=== PATIENT | female | born 1990 | race Caucasian/White ===

== ENCOUNTER 2017-04-11 17:17 | Emergency (ER) | payer BC ==
[2017-04-11 17:31] VITALS: RESP 18
--- NOTE | 2017-04-11 17:58 | ED ---
General Adult HPI - General Chief complaint: Upper Respiratory Infection Stated complaint: congestion Time Seen by Provider: 04/11/17 17:43 Source: patient, RN notes reviewed Mode of arrival: ambulatory Limitations: no limitations - History of Present Illness Initial comments: Patient 26-year-old female who presents emergency room today with a chief complaint of upper respiratory symptoms over the last week. She does admit to cough congestion. Does admit to positive sputum production as been yellow in color. Patient admits to feeling feverish and having chills. Had a sore throat. Does admit to rhinorrhea. Does admit to some pressure ears bilaterally. Patient denies any other complaints. Patient denies any recent shortness of breath, chest pain, back pain, abdominal pain, nausea or vomiting, numbness or tingling, dysuria or hematuria, constipation or diarrhea, headaches or visual changes, or any other complaints. - Related Data Home Medications Medication Instructions Recorded Confirmed Ibuprofen [Motrin] 400 mg PO TID PRN 04/11/17 04/11/17 Previous Rx's Medication Instructions Recorded Azithromycin [Zithromax Z-pack] 0 mg PO DIRECTED #6 tab 04/11/17 Allergies Allergy/AdvReac Type Severity Reaction Status Date / Time bupropion HCl Allergy Oakes-Clinton Verified 04/11/17 18:10 [From Wellbutrin] Syndrome lamotrigine [From Lamictal] Allergy Oakes-[place] Verified 04/11/17 18:10 Syndrome Review of Systems ROS Statement: Those systems with pertinent positive or pertinent negative responses have been documented in the HPI. ROS Other: All systems not noted in ROS Statement are negative. Past Medical History Past Medical History: No Reported History History of Any Multi-Drug Resistant Organisms: None Reported Past Surgical History: Section Past Anesthesia/Blood Transfusion Reactions: No Reported Reaction Past Psychological History: Anxiety, Bipolar, Depression Smoking Status: Current every day smoker Past Alcohol Use History: None Reported Past Drug Use History: None Reported General Exam - General Exam Comments Initial Comments: General: The patient is awake and alert, in no distress, and does not appear acutely ill. Eye: Pupils are equal, round and reactive to light, extra-ocular movements are intact. No nystagmus. There is normal conjunctiva bilaterally. No signs of icterus. Ears, nose, mouth and throat: There are moist mucous membranes and no oral lesions. Neck: The neck is supple, there is no tenderness or JVD. Cardiovascular: There is a regular rate and rhythm. No murmur, rub or gallop is appreciated. Respiratory: Lungs are clear to auscultation, respirations are non-labored, breath sounds are equal. No wheezes, stridor, rales, or rhonchi. Musculoskeletal: Normal ROM, no tenderness. Strength 5/5. Sensation intact. Pulses equal bilaterally 2+. Neurological: A&O x 3. CN II-XII intact, There are no obvious motor or sensory deficits. Coordination appears grossly intact. Speech is normal. Skin: Skin is warm and dry and no rashes or lesions are noted. Psychiatric: Cooperative, appropriate mood & affect, normal judgment. Limitations: no limitations Course Vital Signs 04/11/17 17:29 Temperature 98.4 F Pulse Rate 94 Respiratory 18 Rate Blood Pressure 131/83 O2 Sat by Pulse 98 Oximetry Medical Decision Making - Medical Decision Making Patient reexamined at this time shows no signs of distress. Chest x-rays negative for any evidence of pneumonia. Patient will be covered for bronchitis infection placed on azithromycin. Advised to use [id number] medications well. Advised follow-up family doctor return here to the emergency room if any symptoms increase worsen or for any other concerns. Disposition Clinical Impression: Acute bronchitis Disposition: HOME SELF-CARE Condition: Good Instructions: Acute Bronchitis (ED) Additional Instructions: Please use medication as discussed. Please follow-up with family doctor in the next 2 days of symptoms have not improved. Please return to emergency room if the symptoms increase or worsen or for any other concerns. Prescriptions: Azithromycin [Zithromax Z-pack] 0 mg PO DIRECTED #6 tab Referrals: Jorge Luis Larsen MD [STAFF PHYSICIAN] - 1-2 days Time of Disposition: 18:36
--- NOTE | 2017-04-11 18:21 | XR ---
EXAMINATION TYPE: XR chest 2V DATE OF EXAM: 04/11/2017 COMPARISON: 08/13/2016 HISTORY: 26-year-old female with cough TECHNIQUE: PA and lateral views FINDINGS: The cardiomediastinal silhouette, aorta, and pulmonary vasculature are within normal limits. Lungs an d pleural spaces are clear. IMPRESSION: No acute cardiopulmonary process.
[2017-04-11 19:07] VITALS: BP 144/77; PULSE 75; TEMP 98
== END 2017-04-11 19:06 | disposition home or self-care (01) ==
LOC: EC 17:17
DX: J20.9 Acute bronchitis, unspecified (principal); F17.200 Nicotine dependence, unspecified, uncomplicated; Z88.8 Allergy status to other drugs, medicaments and biological substances
CPT/HCPCS: 71020; 99283

== ENCOUNTER 2017-04-28 22:27 | Emergency (ER) | payer BC, OTHER ==
[2017-04-28 23:00] VITALS: BP 135/87; PULSE 98; RESP 16; TEMP 100.2
--- NOTE | 2017-04-28 23:24 | ED ---
Lower Extremity Injury HPI - General Chief Complaint: Extremity Injury, Lower Stated Complaint: foot injury Time Seen by Provider: 04/28/17 23:01 Source: patient, RN notes reviewed Mode of arrival: wheelchair Limitations: no limitations - History of Present Illness Initial Comments: This a 26-year-old female presents emergency Department chief complaint left ankle and foot injury. Patient states that she was dancing states that she went to do some sort of maneuver and landed awkwardly on her foot and ankle region. She states it is mid foot tenderness and lateral ankle pain. Patient' s had no prior fractures. Patient has a paresthesias no other acute skeletal injury. - Related Data Home Medications Medication Instructions Recorded Confirmed No Known Home Medications [No 04/28/17 04/28/17 Known Home Medications] Allergies Allergy/AdvReac Type Severity Reaction Status Date / Time bupropion HCl Allergy Kimberly Verified 04/28/17 23:00 [From Wellbutrin] Syndrome lamotrigine [From Lamictal] Allergy Kimberly Verified 04/28/17 23:00 Syndrome Review of Systems ROS Statement: Those systems with pertinent positive or pertinent negative responses have been documented in the HPI. ROS Other: All systems not noted in ROS Statement are negative. Past Medical History Past Medical History: No Reported History History of Any Multi-Drug Resistant Organisms: None Reported Past Surgical History: Section Past Anesthesia/Blood Transfusion Reactions: No Reported Reaction Past Psychological History: Anxiety, Bipolar, Depression Smoking Status: Current every day smoker Past Alcohol Use History: None Reported Past Drug Use History: None Reported General Exam General appearance: alert, in no apparent distress Neck exam: Present: normal inspection, full ROM. Absent: tenderness, meningismus, lymphadenopathy Respiratory exam: Present: normal lung sounds bilaterally. Absent: respiratory distress, wheezes, rales, rhonchi, stridor Extremities exam: Present: other (Left ankle there is mild tenderness to the lateral aspect and mid foot tenderness with palpation there is no ecchymosis minimal swelling neurovascular intact) Skin exam: Present: warm, dry, intact, normal color. Absent: rash Course Vital Signs 04/28/17 22:54 Temperature 100.2 F H Pulse Rate 98 Respiratory 16 Rate Blood Pressure 135/87 O2 Sat by Pulse 98 Oximetry Medical Decision Making - Medical Decision Making 26-year-old female presents emergency department for ankle foot injury. There is no acute fracture on x-ray. Patient has a right foot and ankle sprain. Patient will be discharged with Elijah wrap, ice and elevate rest, Motrin. Disposition Clinical Impression: Right foot sprain, Right ankle sprain Disposition: HOME SELF-CARE Condition: Stable Instructions: Foot Sprain (ED), Ankle Sprain (ED) Additional Instructions: Please return to the Emergency Department if symptoms worsen or any other concerns. Referrals: None,Stated [Primary Care Provider] - 1-2 days Time of Disposition: 23:57
--- NOTE | 2017-04-29 00:05 | XR ---
Exam: XR LEFT ANKLE History: Pain. Comparison: None provided. Technique: 3 views of the left ankle. Findings: No acute displaced fracture or dislocation. No significant arthritic or erosive change. No significant effusion demonstrated. Impression: No acute process identified.
--- NOTE | 2017-04-29 00:07 | XR ---
Exam: XR LEFT FOOT History: Pain. Comparison: None provided. Technique: 3 views of the left foot. Findings: No acute displaced fracture or dislocation. No significant arthritic or erosive changes. No soft tissue calcification identified. No aggressive appearing process. Impression: No acute abnormality is evident. If symptoms persist or worsen in the ankle or foot, consider MRI follow-up.
== END 2017-04-29 00:18 | disposition home or self-care (01) ==
LOC: EC 22:27
DX: S93.402A Sprain of unspecified ligament of left ankle, initial encounter (principal); S93.602A Unspecified sprain of left foot, initial encounter; F17.200 Nicotine dependence, unspecified, uncomplicated; Z88.8 Allergy status to other drugs, medicaments and biological substances; X50.9XXA Other and unspecified overexertion or strenuous movements or postures, initial encounter; Y93.41 Activity, dancing
CPT/HCPCS: 99283

== ENCOUNTER 2018-02-02 17:11 | Emergency (ER) | payer BC, OTHER ==
[2018-02-02] MEDS ORDERED: MAG HYDROX/AL HYDROX/SIMETH 30 ML, HYOSCYAMINE ELIXIR 10 ML, CIMETIDINE HCL 300 MG, LID... PO STA ×4 (18:11)
--- NOTE | 2018-02-02 18:33 | ED ---
Chest Pain HPI - General Chief Complaint: Chest Pain Stated Complaint: Heavy Chest/SOB Time Seen by Provider: 02/02/18 17:57 Source: patient Mode of arrival: ambulatory Limitations: no limitations - History of Present Illness Initial Comments: 27-year-old female patient presents to the emergency department today for evaluation of chest discomfort. Patient states that she had an episode last evening where she had chest pressure that, moved up into her neck. Patient states that it lasted for about an hour and then dissipated. She states that she developed similar symptoms today that resolved after an hour. States that she feels like it might be coming back. Patient denies any shortness of breath , dizziness, weakness, nausea, or vomiting. Patient states that she did have sharp pains in her abdomen a few nights ago that woke her from sleep. She states there is a chance that she might be . Patient denies any recent rash, fever, chills, abdominal pain, nausea, vomiting, diarrhea, constipation, back pain, numbness, tingling, hematuria, dysuria, urinary urgency, urinary frequency, headache, visual changes, or any other complaints. She denies any recent long car rides or travel, denies hormonal contraceptive use, denies any cough or hemoptysis. - Related Data Home Medications Medication Instructions Recorded Confirmed Phentermine HCl [Adipex-P] 37.5 mg PO QAM 02/02/18 02/02/18 Allergies Allergy/AdvReac Type Severity Reaction Status Date / Time bupropion HCl Allergy Oakes-[place] Verified 02/02/18 18:15 [From Wellbutrin] Syndrome lamotrigine [From Lamictal] Allergy Kimberly Verified 02/02/18 18:15 Syndrome Review of Systems ROS Statement: Those systems with pertinent positive or pertinent negative responses have been documented in the HPI. ROS Other: All systems not noted in ROS Statement are negative. EKG Findings - EKG Comments: EKG Findings:: EKG obtained at 1743 shows normal sinus rhythm with a ventricular rate is 78, OR interval 1:30, QRS duration 82, QT 366, QTc 417. No evidence of ST elevation or depression. Past Medical History Past Medical History: No Reported History History of Any Multi-Drug Resistant Organisms: None Reported Past Surgical History: Section Past Anesthesia/Blood Transfusion Reactions: No Reported Reaction Past Psychological History: Anxiety, Bipolar, Depression Smoking Status: Current every day smoker Past Alcohol Use History: None Reported Past Drug Use History: None Reported General Exam Limitations: no limitations Course Vital Signs 02/02/18 17:15 Temperature 97.1 F L Pulse Rate 84 Respiratory 18 Rate Blood Pressure 149/86 O2 Sat by Pulse 100 Oximetry Chest Pain MDM - MDM 27 year-old female patient presented to the emergency department today for complaints of chest pressure. Physical examination is unremarkable. Lungs are clear to auscultation with good air movement. Patient has no chest wall tenderness. Vital signs are stable oxygen saturation is 100% on room air, heart rate is normal. Chest x-ray shows no acute cardiopulmonary process. EKG is normal sinus rhythm. Patient does negative PERC criteria for pulmonary embolism. Patient did receive a GI cocktail here in the department. States it did improve her symptoms for several minutes. She states that she has had an increase in energy drinks and taken has been taking Adipex. She is instructed to avoid energy drinks. She is instructed to follow-up with her primary care physician for recheck as soon as possible. Return parameters discussed in detail. She verbalizes understanding and agrees with this plan. RADIOLOGY: Two-view x-ray of the chest was obtained. Heart media's enema normal. Lungs are clear. Diaphragm is normal. Bony thorax is intact. Impression by Dr. Haynes shows normal chest with no change. Disposition Clinical Impression: Chest pressure Disposition: HOME SELF-CARE Condition: Good Instructions: Chest Pain (ED) Additional Instructions: Avoid energy drinks. Take medications as prescribed. Follow up with your physician for recheck in 1-2 days. Return immediately for any new, worsening, or concerning symptoms. Is patient prescribed a controlled substance at d/c from ED?: No Referrals: Cb Fried DO [Primary Care Provider] - 1-2 days Time of Disposition: 19:15
--- NOTE | 2018-02-02 19:00 | XR ---
EXAMINATION TYPE: XR chest 2V DATE OF EXAM: 02/02/2018 COMPARISON: 04/11/2017 HISTORY: Chest heaviness TECHNIQUE: Frontal and lateral views of the chest are obtained. FINDINGS: Heart and mediastinum are normal. Lungs are clear. Diaphragm is normal. Bony thorax is int act. IMPRESSION: Normal chest. No change.
[2018-02-02 19:28] VITALS: BP 133/93; PULSE 77; RESP 16; TEMP 98.3
== END 2018-02-02 19:26 | disposition home or self-care (01) ==
LOC: EC 17:11
DX: R07.89 Other chest pain (principal); F17.200 Nicotine dependence, unspecified, uncomplicated; Z79.899 Other long term (current) drug therapy; Z88.8 Allergy status to other drugs, medicaments and biological substances
CPT/HCPCS: 71046; 81025; 93005; 99285

== ENCOUNTER → 2018-05-25 | Outpatient (CLI) | payer OTHER ==
[2018-05-25 10:59] LABS: HGB 14.8 gm/dL (11.4-16.0); MCHC 32.8 g/dL (31.0-37.0); MCV 91.4 fL (80.0-100.0); Mean Platelet Volume 6.3; Platelet Count 321 k/uL (150-450); RBC 4.93 m/uL (3.80-5.40); RDW 13.2 % (11.5-15.5); WBC 7.7 k/uL (3.8-10.6)
[2018-05-25 16:41] LABS: Gliadin AB IgA, Unit 1.3 U/mL
[2018-05-25 20:20] LABS: Dermato. farinae IgE <0.10 kU/L
[2018-05-25 20:21] LABS: Cat Epith & Dander IgE <0.10 kU/L; Ragweed,Common IgE <0.10 kU/L
[2018-05-26 14:44] LABS: Alt. alternata IgE Class CLASS 0; Alternaria alternata IgE <0.35 kU/L (<0.35)
== END | disposition home or self-care (01) ==
LOC: LABWHC1 10:08
PROVIDERS: ATTEND Allergy & Immunology
DX: T78.2XXA Anaphylactic shock, unspecified, initial encounter (principal); K59.00 Constipation, unspecified; R23.2 Flushing
CPT/HCPCS: 36415; 82784; 83516; 83520; 85027; 86003

== ENCOUNTER → 2018-06-15 | Outpatient (CLI) | payer OTHER ==
--- NOTE | 2018-06-15 18:00 | EST ---
EXERCISE STRESS AGE: 27 SEX: Female. HT: 62 WT: 200 PROTOCOL: TXT STAGE: 4 DURATION OF EXERCISE: 9:30 HEART RATE REST: 76 BLOOD PRESSURE REST: 124/76 MAXIMUM HEART RATE ACHIEVED: 170 MAXIMUM BLOOD PRESSURE: 164/74 85% MPHR: 165 100% MPHR: 194 METS: 11.1 INDICATIONS: Chest pain. CLINICAL INFORMATION: Baseline rhythm is sinus mechanism, rate 76. Normal intervals. Right axis deviation. Baseline blood pressure 124/76 mmHg. Patient exercised on John protocol for 9 minutes 30 seconds, reaching a peak rate 170 beats per minute, which is equal to 87% of maximum predicted heart rate. Peak blood pressure 164/74 mmHg. There was no chest pain. Electrocardiograph monitoring revealed no evidence of diagnostic ischemic ST deviation. CONCLUSION: 1. Average exercise tolerance with no symptoms of chest pain. 2. Normal stress electrocardiogram with no evidence of stress-induced ischemia. MMODL / IJN: [id number] /
== END | disposition home or self-care (01) ==
LOC: RADNMMAIN 08:52
PROVIDERS: ATTEND Family Medicine
DX: R55 Syncope and collapse (principal)
CPT/HCPCS: 93017

== ENCOUNTER 2019-04-13 20:57 | Emergency (ER) | payer OTHER ==
[2019-04-13 21:58] LABS: Basophils # (A) 0.1 k/uL (0-0.2); Basophils % (A) 1 %; Eosinophils # (A) 0.6 k/uL (0-0.7); Eosinophils % (A) 4 %; HCT 40.6 % (34.0-46.0); HGB 12.9 gm/dL (11.4-16.0); Lymphocytes # (A) 4.7 k/uL (1.0-4.8); Lymphocytes % (A) 33 %; MCH 28.1 pg (25.0-35.0); MCHC 31.7 g/dL (31.0-37.0); MCV 88.8 fL (80.0-100.0); Mean Platelet Volume 6.1; Monocytes # (A) 0.6 k/uL (0-1.0); Monocytes % (A) 4 %; Neutrophils # (A) 7.9 k/uL (1.3-7.7); Neutrophils % (A) 56 %; Platelet Count 409 k/uL (150-450); RBC 4.57 m/uL (3.80-5.40); RDW 13.6 % (11.5-15.5); WBC 14.1 k/uL (3.8-10.6)
[2019-04-13 22:02] LABS: Appearance,Urine Cloudy (Clear); Bilirubin,Urine Negative (Negative); Blood,Urine Moderate (Negative); Color,Urine Yellow; Glucose,Urine (UA) Negative (Negative); Ketones,Urine Negative (Negative); Leukocyte Esterase,Urine Negative (Negative); Mucus,Urine Rare /hpf; Nitrite,Urine Negative (Negative); Protein,Urine Negative (Negative); RBC,Urine 16 /hpf (0-5); Specific Gravity,Urine 1.024 (1.001-1.035); Squamous Epithelial Cell,Urine 21 /hpf (0-4); Urobilinogen,Urine <2.0 mg/dL (<2.0); WBC,Urine <1 /hpf (0-5)
[2019-04-13 22:08] LABS: ALT 17 U/L (9-52); AST 14 U/L (14-36); African American GFR (CKD) >90 (>60 ml/min/1.73 sqM); Albumin 4.2 g/dL (3.5-5.0); Alkaline Phosphatase 83 U/L (38-126); Anion Gap 8 mmol/L; Blood Urea Nitrogen 15 mg/dL (7-17); Calcium 9.6 mg/dL (8.4-10.2); Carbon Dioxide 25 mmol/L (22-30); Chloride 107 mmol/L (98-107); Glucose 78 mg/dL (74-99); Non-African American GFR(CKD) >90 (>60 ml/min/1.73 sqM); Potassium 4.1 mmol/L (3.5-5.1); Sodium 140 mmol/L (137-145); Total Bilirubin 0.2 mg/dL (0.2-1.3); Total Protein 7.4 g/dL (6.3-8.2)
[2019-04-13 22:14] LABS: Glucose,Whole Blood 96 mg/dL (75-99)
--- NOTE | 2019-04-13 22:32 | ED ---
Dizziness HPI - General Chief Complaint: Dizziness Stated Complaint: Dizziness Time Seen by Provider: 04/13/19 21:10 Source: patient Mode of arrival: ambulatory Limitations: no limitations - History of Present Illness Initial Comments: Patient is a 28-year-old female presenting to emergency Department with a chief complaint of lightheadedness. Patient reports her symptoms started about 2 days ago with minimal improvement. Patient reports going to the urgent care where they performed a urine dip and a test which was negative. The provide r refer the patient to the emergency department. Patient reports a sensation that her "face is burning." Patient also reports a mild midline headache that is not the worst headache of her life or a migraine. Patient denies any dizziness. Patient reports "lung pain" that is not exacerbated or alleviated with breathing. Patient denies shortness of breath, chest pain, chest tightness. Patient denies nausea, vomiting, diarrhea, abdominal pain, back pain, fever or rash. Patient denies recent unexplained weight loss, night sweats or chills. Patient denies a history of early sudden in the family. Patient has no significant past medical history. Patient denies syncope or near syncope. - Related Data Home Medications Medication Instructions Recorded Confirmed Phentermine HCl [Adipex-P] 37.5 mg PO QAM 02/02/18 02/02/18 Previous Rx's Medication Instructions Recorded Cephalexin [Keflex] 250 mg PO Q6HR #20 cap 04/13/19 Allergies Allergy/AdvReac Type Severity Reaction Status Date / Time bupropion HCl Allergy Oakes-[place] Verified 04/13/19 21:11 [From Wellbutrin] Syndrome lamotrigine [From Lamictal] Allergy Champ-Cl[place] Verified 04/13/19 21:11 Syndrome Review of Systems ROS Statement: Those systems with pertinent positive or pertinent negative responses have been documented in the HPI. ROS Other: All systems not noted in ROS Statement are negative. Past Medical History Past Medical History: No Reported History History of Any Multi-Drug Resistant Organisms: None Reported Past Surgical History: Section Past Anesthesia/Blood Transfusion Reactions: No Reported Reaction Past Psychological History: Anxiety, Bipolar, Depression Smoking Status: Current every day smoker Past Alcohol Use History: None Reported Past Drug Use History: None Reported General Exam Limitations: no limitations General appearance: alert, in no apparent distress Head exam: Present: atraumatic, normocephalic, normal inspection Eye exam: Present: normal appearance, PERRL, EOMI. Absent: scleral icterus, conjunctival injection Pupils: Present: normal accommodation ENT exam: Present: normal exam, normal oropharynx, mucous membranes moist, TM's normal bilaterally, normal external ear exam Neck exam: Present: normal inspection, full ROM. Absent: lymphadenopathy Respiratory exam: Present: normal lung sounds bilaterally Cardiovascular Exam: Present: regular rate, normal rhythm, normal heart sounds GI/Abdominal exam: Present: soft, normal bowel sounds Extremities exam: Present: normal inspection, full ROM Back exam: Present: normal inspection, full ROM Neurological exam: Present: alert, oriented X3 Psychiatric exam: Present: normal affect, normal mood Skin exam: Present: warm, intact, normal color Course Vital Signs 04/13/19 04/13/19 04/13/19 21:08 23:22 23:37 Temperature 98.2 F 97.5 F L 98.6 F Pulse Rate 79 83 75 Respiratory 16 18 16 Rate Blood Pressure 145/91 130/83 138/74 O2 Sat by Pulse 99 97 98 Oximetry EKG Findings - EKG Comments: EKG Findings:: Normal sinus rhythm, normal EKG. IA interval 136, QRS duration 86, ventricular rate 73, QT/QTc 408/449,P-R-T axes 32 39 8 Medical Decision Making - Medical Decision Making Patient is a 28-year-old female presenting to the emergency department for lightheadedness. EKG is unremarkable. CBC showing leukocytosis otherwise unremarkable. Patient's vitals are stable. UA is indicative of microscopic hematuria and is otherwise unremarkable. Patient states that she developed urinary symptoms over the last day. Patient is requesting to be treated for UTI due to her history of recurrent UTIs. Patient will be discharged with a 5 day course of Keflex. Patient advised to follow with primary care. Strict return parameters were thoroughly discussed with patient was understanding and agreeable. Case discussed with physician. - Lab Data Result diagrams: 04/13/19 21:42 04/13/19 21:42 Lab Results 04/13/19 04/13/19 04/13/19 Range/Units 21:42 21:42 21:42 WBC 14.1 H (3.8-10.6) k/uL RBC 4.57 (3.80-5.40) m/uL Hgb 12.9 (11.4-16.0) gm/dL Hct 40.6 (34.0-46.0) % MCV 88.8 (80.0-100.0) fL MCH 28.1 (25.0-35.0) pg MCHC 31.7 (31.0-37.0) g/dL RDW 13.6 (11.5-15.5) % Plt Count 409 (150-450) k/uL Neutrophils % 56 % Lymphocytes % 33 % Monocytes % 4 % Eosinophils % 4 % Basophils % 1 % Neutrophils # 7.9 H (1.3-7.7) k/uL Lymphocytes # 4.7 (1.0-4.8) k/uL Monocytes # 0.6 (0-1.0) k/uL Eosinophils # 0.6 (0-0.7) k/uL Basophils # 0.1 (0-0.2) k/uL Sodium 140 (137-145) mmol/L Potassium 4.1 (3.5-5.1) mmol/L Chloride 107 (98-107) mmol/L Carbon Dioxide 25 (22-30) mmol/L Anion Gap 8 mmol/L BUN 15 (7-17) mg/dL Creatinine 0.78 (0.52-1.04) mg/dL Est GFR (CKD-EPI)AfAm >90 (>60 ml/min/1.73 sqM) Est GFR (CKD-EPI)NonAf >90 (>60 ml/min/1.73 sqM) Glucose 78 (74-99) mg/dL POC Glucose (mg/dL) (75-99) mg/dL POC Glu Vp Customer Development ID Calcium 9.6 (8.4-10.2) mg/dL Total Bilirubin 0.2 (0.2-1.3) mg/dL AST 14 (14-36) U/L ALT 17 (9-52) U/L Alkaline Phosphatase 83 (38-126) U/L Total Protein 7.4 (6.3-8.2) g/dL Albumin 4.2 (3.5-5.0) g/dL Urine Color Yellow Urine Appearance Cloudy H (Clear) Urine pH 6.0 (5.0-8.0) Ur Specific [place] 1.024 (1.001-1.035) Urine Protein Negative (Negative) Urine Glucose (UA) Negative (Negative) Urine Ketones Negative (Negative) Urine Blood Moderate H (Negative) Urine Nitrite Negative (Negative) Urine Bilirubin Negative (Negative) Urine Urobilinogen <2.0 (<2.0) mg/dL Ur Leukocyte Esterase Negative (Negative) Urine RBC 16 H (0-5) /hpf Urine WBC <1 (0-5) /hpf Ur Squamous Epith Cells 21 H (0-4) /hpf Urine Mucus Rare H (None) /hpf 04/13/19 Range/Units 22:05 WBC (3.8-10.6) k/uL RBC (3.80-5.40) m/uL Hgb (11.4-16.0) gm/dL Hct (34.0-46.0) % MCV (80.0-100.0) fL MCH (25.0-35.0) pg MCHC (31.0-37.0) g/dL RDW (11.5-15.5) % Plt Count (150-450) k/uL Neutrophils % % Lymphocytes % % Monocytes % % Eosinophils % % Basophils % % Neutrophils # (1.3-7.7) k/uL Lymphocytes # (1.0-4.8) k/uL Monocytes # (0-1.0) k/uL Eosinophils # (0-0.7) k/uL Basophils # (0-0.2) k/uL Sodium (137-145) mmol/L Potassium (3.5-5.1) mmol/L Chloride (98-107) mmol/L Carbon Dioxide (22-30) mmol/L Anion Gap mmol/L BUN (7-17) mg/dL Creatinine (0.52-1.04) mg/dL Est GFR (CKD-EPI)AfAm (>60 ml/min/1.73 sqM) Est GFR (CKD-EPI)NonAf (>60 ml/min/1.73 sqM) Glucose (74-99) mg/dL POC Glucose (mg/dL) 96 (75-99) mg/dL POC Glu Vp Customer Development ID Paul Alfaro Calcium (8.4-10.2) mg/dL Total Bilirubin (0.2-1.3) mg/dL AST (14-36) U/L ALT (9-52) U/L Alkaline Phosphatase (38-126) U/L Total Protein (6.3-8.2) g/dL Albumin (3.5-5.0) g/dL Urine Color Urine Appearance (Clear) Urine pH (5.0-8.0) Ur Specific [place] (1.001-1.035) Urine Protein (Negative) Urine Glucose (UA) (Negative) Urine Ketones (Negative) Urine Blood (Negative) Urine Nitrite (Negative) Urine Bilirubin (Negative) Urine Urobilinogen (<2.0) mg/dL Ur Leukocyte Esterase (Negative) Urine RBC (0-5) /hpf Urine WBC (0-5) /hpf Ur Squamous Epith Cells (0-4) /hpf Urine Mucus (None) /hpf Disposition Clinical Impression: Lightheadedness Disposition: HOME SELF-CARE Condition: Stable Instructions (If sedation given, give patient instructions): Dizziness (ED) Additional Instructions: Please follow with primary care. Please return to emergency department if symptoms worsen. Please see prescribe medication as directed. Prescriptions: Cephalexin [Keflex] 250 mg PO Q6HR #20 cap Is patient prescribed a controlled substance at d/c from ED?: No Referrals: Cb Fried DO [Primary Care Provider] - 1-2 days Time of Disposition: 23:29
[2019-04-13 23:38] VITALS: BP 138/74; PULSE 75; RESP 16; TEMP 98.6
== END 2019-04-13 23:35 | disposition home or self-care (01) ==
LOC: EC 20:57
DX: R42 Dizziness and giddiness (principal); R31.29 Other microscopic hematuria; D72.829 Elevated white blood cell count, unspecified; F17.200 Nicotine dependence, unspecified, uncomplicated; Z79.899 Other long term (current) drug therapy; Z88.8 Allergy status to other drugs, medicaments and biological substances
CPT/HCPCS: 36415; 80053; 81001; 85025; 93005; 99284

== ENCOUNTER 2020-12-03 14:55 | Emergency (ER) | payer OTHER ==
--- NOTE | 2020-12-03 17:12 | ED ---
General Adult HPI - General Source: patient Mode of arrival: ambulatory Limitations: no limitations <Richard Joyce - Last Filed: 12/03/20 17:08> <Cj Raza - Last Filed: 12/03/20 20:17> - General Chief complaint: Upper Respiratory Infection Stated complaint: Covid+, lung pain - History of Present Illness Initial comments: Medical screening note: 29-year-old female presenting to the emergency department with a chief complaint of lung pain. Patient is symptomatically for 8 days and tested +5 days ago. She is reporting of pleuritic chest pain and exertional dyspnea. She was on 5 day course of prednisone with no improvement in symptoms. (Richard Joyce) - Related Data Home Medications Medication Instructions Recorded Confirmed Phentermine HCl [Adipex-P] 37.5 mg PO QAM 02/02/18 02/02/18 Previous Rx's Medication Instructions Recorded Cephalexin [Keflex] 250 mg PO Q6HR #20 cap 04/13/19 Ibuprofen [Motrin] 600 mg PO Q8HR PRN #24 tab 12/03/20 Allergies Allergy/AdvReac Type Severity Reaction Status Date / Time bupropion HCl Allergy [place] Verified 12/03/20 15:19 [From Wellbutrin] Syndrome lamotrigine [From Lamictal] Allergy [place] Verified 12/03/20 15:19 Syndrome Review of Systems ROS Other: All systems not noted in ROS Statement are negative. <Richard Joyce - Last Filed: 12/03/20 17:08> ROS Other: All systems not noted in ROS Statement are negative. <Cj Raza - Last Filed: 12/03/20 20:17> ROS Statement: Those systems with pertinent positive or pertinent negative responses have been documented in the HPI. Past Medical History Past Medical History: No Reported History History of Any Multi-Drug Resistant Organisms: None Reported Past Surgical History: Section Past Anesthesia/Blood Transfusion Reactions: No Reported Reaction Past Psychological History: Anxiety, Bipolar, Depression Smoking Status: Former smoker Past Alcohol Use History: None Reported Past Drug Use History: None Reported <Richard Joyce - Last Filed: 12/03/20 17:08> General Exam Limitations: no limitations <Richard Joyce - Last Filed: 12/03/20 17:08> General appearance: alert, in no apparent distress Head exam: Present: atraumatic, normocephalic Eye exam: Present: normal appearance, PERRL ENT exam: Present: normal exam Neck exam: Present: normal inspection. Absent: tenderness, meningismus Respiratory exam: Present: normal lung sounds bilaterally. Absent: respiratory distress, wheezes Cardiovascular Exam: Present: regular rate, normal rhythm GI/Abdominal exam: Present: soft. Absent: distended, tenderness, guarding Extremities exam: Present: normal inspection, normal capillary refill. Absent: pedal edema Neurological exam: Present: alert, oriented X3, CN II-XII intact. Absent: motor sensory deficit Psychiatric exam: Present: normal affect, normal mood Skin exam: Present: warm, dry, intact. Absent: cyanosis, diaphoretic <Cj Raza - Last Filed: 12/03/20 20:17> - General Exam Comments Initial Comments: General: Well-developed, no distress HEENT: Normocephalic/atraumatic, PERLL, pharynx erythema, TM clear Chest/Lungs: Normal respirations, no signs of respiratory distress clear to auscultation bilaterally no wheezes, rales, rhonchi Cardiac: Regular rate and rhythm Abdomen/GI: Soft nontender, Musculoskeletal: Nontender, full range of motion Skin: Warmth, no rashes or lesions, no diaphoresis Neurologic: AAO x 3, normal gait Psychiatric: Mood and affect normal, judgment normal (Richard Joyce) Course Vital Signs 12/03/20 15:19 Temperature 97.9 F Pulse Rate 86 Respiratory 18 Rate Blood Pressure 121/83 O2 Sat by Pulse 97 Oximetry EKG Findings - EKG Comments: EKG Findings:: EKG: Normal sinus rhythm, rate 74, [place] interval 142, QRS duration 78, QTC 424, no ST segment elevation. <Cj Raza - Last Filed: 12/03/20 20:17> Medical Decision Making - Lab Data Result diagrams: 12/03/20 17:46 <Cj Raza - Last Filed: 12/03/20 20:17> - Medical Decision Making 29-year-old female who presented for evaluation of upper chest pain and discomfort. Recently diagnosed with coronavirus. Patient is well-appearing with stable vitals. She states she had been prescribed steroids with minimal improvement. No fever. Patient has mild transaminitis, negative d-dimer, normal electrolytes. 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 Patient will try anti-inflammatories for upper chest discomfort. (Cj Raza) - Lab Data Lab Results 12/03/20 12/03/20 12/03/20 Range/Units 17:46 17:46 17:46 PT 11.2 (9.0-12.0) sec INR 1.1 (<1.2) APTT 25.7 (22.0-30.0) sec D-Dimer <0.17 (<0.60) mg/L FEU Sodium 140 (137-145) mmol/L Potassium 4.2 (3.5-5.1) mmol/L Chloride 107 (98-107) mmol/L Carbon Dioxide 22 (22-30) mmol/L Anion Gap 11 mmol/L BUN 20 H (7-17) mg/dL Creatinine 0.80 (0.52-1.04) mg/dL Est GFR (CKD-EPI)AfAm >90 (>60 ml/min/1.73 sqM) Est GFR (CKD-EPI)NonAf >90 (>60 ml/min/1.73 sqM) Glucose 83 (74-99) mg/dL Plasma Lactic Acid [place] 1.3 (0.7-2.0) mmol/L Calcium 9.3 (8.4-10.2) mg/dL Magnesium 1.8 (1.6-2.3) mg/dL Total Bilirubin 0.2 (0.2-1.3) mg/dL AST 55 H (14-36) U/L ALT 110 H (4-34) U/L Alkaline Phosphatase 105 (38-126) U/L Lactate Dehydrogenase 582 (313-618) U/L C-Reactive Protein <5.0 (<10.0) mg/L Total Protein 6.9 (6.3-8.2) g/dL Albumin 3.9 (3.5-5.0) g/dL Disposition <Richard Joyce - Last Filed: 12/03/20 17:08> Is patient prescribed a controlled substance at d/c from ED?: No Time of Disposition: 20:17 <Cj Raza - Last Filed: 12/03/20 20:17> Clinical Impression: COVID-19 Disposition: HOME SELF-CARE Condition: Good Instructions (If sedation given, give patient instructions): Upper Respiratory Infection (ED), Coronavirus Disease 2019 (COVID-19) Prescriptions: Ibuprofen [Motrin] 600 mg PO Q8HR PRN #24 tab PRN Reason: Pain Referrals: Cb Fried DO [Primary Care Provider] - 1-2 days
[2020-12-03 18:00] LABS: ALT 110 U/L (4-34); AST 55 U/L (14-36); African American GFR (CKD) >90 (>60 ml/min/1.73 sqM); Albumin 3.9 g/dL (3.5-5.0); Alkaline Phosphatase 105 U/L (38-126); Anion Gap 11 mmol/L; Blood Urea Nitrogen 20 mg/dL (7-17); Calcium 9.3 mg/dL (8.4-10.2); Carbon Dioxide 22 mmol/L (22-30); Chloride 107 mmol/L (98-107); Glucose 83 mg/dL (74-99); LDH 582 U/L (313-618); Magnesium 1.8 mg/dL (1.6-2.3); Non-African American GFR(CKD) >90 (>60 ml/min/1.73 sqM); Potassium 4.2 mmol/L (3.5-5.1); Sodium 140 mmol/L (137-145); Total Bilirubin 0.2 mg/dL (0.2-1.3); Total Protein 6.9 g/dL (6.3-8.2)
[2020-12-03 18:05] LABS: D-Dimer <0.17 mg/L FEU (<0.60); INR 1.1 (<1.2); Partial Thromboplastin Time 25.7 sec (22.0-30.0); Prothrombin Time 11.2 sec (9.0-12.0)
[2020-12-03 18:23] LABS: C Reactive Protein <5.0 mg/L (<10.0)
--- NOTE | 2020-12-03 19:22 | XR ---
EXAMINATION TYPE: XR chest 1V portable DATE OF EXAM: 12/03/2020 COMPARISON: 02/02/2018. HISTORY: Cough. TECHNIQUE: Single frontal view of the chest is obtained. FINDINGS: There is no focal air space opacity, pleural effusion, or pneumothorax seen. The cardiac silhouette size is within normal limits. The osseous structures are intact. IMPRESSION: No acute process.
[2020-12-03 21:15] VITALS: BP 126/80; PULSE 82; RESP 20; TEMP 98.2
[2020-12-04 01:35] LABS: Ferritin 76.5 ng/mL (10.0-291.0)
== END 2020-12-03 20:25 | disposition home or self-care (01) ==
LOC: EC 14:55
DX: U07.1 COVID-19 (principal); F41.9 Anxiety disorder, unspecified; F32.9 Major depressive disorder, single episode, unspecified; Z87.891 Personal history of nicotine dependence; Z79.1 Long term (current) use of non-steroidal anti-inflammatories (NSAID)
CPT/HCPCS: 36415; 71045; 80053; 82728; 83605; 83615; 83735; 84145; 85379; 85610; 85730; 86140; 93005; 99285

== ENCOUNTER 2022-04-12 23:57 | Emergency (ER) | payer BC, OTHER ==
[2022-04-13 00:19] VITALS: TEMP 98.3
--- NOTE | 2022-04-13 00:51 | ED ---
General Adult HPI - General Chief complaint: Abdominal Pain Stated complaint: Abdominal Pain, Bloating Time Seen by Provider: 04/13/22 00:24 Source: patient, RN notes reviewed Mode of arrival: ambulatory Limitations: no limitations - History of Present Illness Initial comments: 31-year-old female presents to the emergency department for evaluation of ab dominal bloating. Patient states this has been an intermittent issue for the past several months since having her gallbladder removed in November. Reports mild discomfort. Patient states she has made the recommended dietary changes with no improvement. States abdominal bloating is not affected by menstruation, oral intake, or passing stool. Does have a follow-up appointment scheduled with her surgeon in 2 weeks. Has had intermittent issues with constipation, though had a regular soft formed bowel movement yesterday. Denies fever, chills, headache, dizziness, chest pain, shortness of breath, dysuria, or hematuria. - Related Data Home Medications Medication Instructions Recorded Confirmed Phentermine HCl [Adipex-P] 37.5 mg PO QAM 02/02/18 02/02/18 Previous Rx's Medication Instructions Recorded Cephalexin [Keflex] 250 mg PO Q6HR #20 cap 04/13/19 Ibuprofen [Motrin] 600 mg PO Q8HR PRN #24 tab 12/03/20 Allergies Allergy/AdvReac Type Severity Reaction Status Date / Time bupropion HCl Allergy [place] Verified 04/13/22 00:19 [From Wellbutrin] Syndrome lamotrigine [From Lamictal] Allergy [place] Verified 04/13/22 00:19 Syndrome Review of Systems ROS Statement: Those systems with pertinent positive or pertinent negative responses have been documented in the HPI. ROS Other: All systems not noted in ROS Statement are negative. Past Medical History Past Medical History: No Reported History History of Any Multi-Drug Resistant Organisms: None Reported Past Surgical History: Section, Cholecystectomy Past Anesthesia/Blood Transfusion Reactions: No Reported Reaction Past Psychological History: Anxiety, Bipolar, Depression Smoking Status: Current every day smoker Past Alcohol Use History: Occasional Past Drug Use History: None Reported General Exam Limitations: no limitations (Well-developed, well-nourished female in no acute distress. Initial temperature 98.3, pulse 84, respirations 18, blood pressure 173/118, pulse ox 99% on room air.) General appearance: alert, in no apparent distress ENT exam: Present: normal exam, normal oropharynx, mucous membranes moist Respiratory exam: Present: normal lung sounds bilaterally. Absent: respiratory distress, wheezes, rales, rhonchi, stridor, chest wall tenderness Cardiovascular Exam: Present: regular rate, normal rhythm, normal heart sounds. Absent: systolic murmur, diastolic murmur, rubs, gallop, clicks GI/Abdominal exam: Present: soft, distended (Diffuse abdominal distention), normal bowel sounds. Absent: tenderness, guarding, rebound, rigid Extremities exam: Present: normal inspection, full ROM, normal capillary refill. Absent: tenderness, pedal edema, joint swelling, calf tenderness Neurological exam: Present: alert, oriented X3, CN II-XII intact Psychiatric exam: Present: normal affect, normal mood Skin exam: Present: warm, dry, intact, normal color. Absent: rash Course Vital Signs 04/13/22 04/13/22 00:15 02:27 Temperature 98.3 F Pulse Rate 84 72 Respiratory 18 16 Rate Blood Pressure 173/118 145/99 O2 Sat by Pulse 99 98 Oximetry - Reevaluation(s) Reevaluation #1: 04/13/22 03:00 Upon reassessment, patient continues to be resting comfortably. Abdomen remains mildly distended. Updated on results and instructed to follow up with her surgeon for further evaluation and treatment. Did discuss elevated blood pressure and encouraged to follow up with PCP for a recheck. Patient verbalizes understanding and agrees with this plan. Medical Decision Making - Medical Decision Making 31-year-old female with a past medical history of cholecystectomy presents to the emergency department for evaluation of persistent abdominal distention. Upon exam, patient is well-appearing and in no acute distress. Her abdomen does appear distended, however is soft and nontender with active bowel sounds. Tolerating oral intake. Laboratory studies were obtained and are unremarkable. KUB was negative. Discussed findings with patient and encouraged her to inc orporate diet changes such as increasing fiber and water intake. Suggested symptomatic treatment with simethicone. Encouraged to utilize a food journal to look for correlations. Patient is instructed to keep follow up appointment with surgeon as scheduled. Return parameters discussed in detail. Patient verbalizes understanding and agrees with this plan. Attending: Kay. - Lab Data Result diagrams: 04/13/22 00:48 04/13/22 00:48 Lab Results 04/13/22 04/13/22 04/13/22 Range/Units 00:48 00:48 00:48 WBC 10.7 H (3.8-10.6) k/uL RBC 4.92 (3.80-5.40) m/uL Hgb 14.8 (11.4-16.0) gm/dL Hct 45.3 (34.0-46.0) % MCV 92.1 (80.0-100.0) fL MCH 30.1 (25.0-35.0) pg MCHC 32.7 (31.0-37.0) g/dL RDW 13.2 (11.5-15.5) % Plt Count 380 (150-450) k/uL MPV 6.9 Neutrophils % 49 % Lymphocytes % 40 % Monocytes % 5 % Eosinophils % 4 % Basophils % 1 % Neutrophils # 5.3 (1.3-7.7) k/uL Lymphocytes # 4.2 (1.0-4.8) k/uL Monocytes # 0.6 (0-1.0) k/uL Eosinophils # 0.4 (0-0.7) k/uL Basophils # 0.1 (0-0.2) k/uL Sodium (137-145) mmol/L Potassium (3.5-5.1) mmol/L Chloride (98-107) mmol/L Carbon Dioxide (22-30) mmol/L Anion Gap mmol/L BUN (7-17) mg/dL Creatinine (0.52-1.04) mg/dL Est GFR (CKD-EPI)AfAm (>60 ml/min/1.73 sqM) Est GFR (CKD-EPI)NonAf (>60 ml/min/1.73 sqM) Glucose (74-99) mg/dL Calcium (8.4-10.2) mg/dL Total Bilirubin (0.2-1.3) mg/dL AST (14-36) U/L ALT (4-34) U/L Alkaline Phosphatase (38-126) U/L Total Protein (6.3-8.2) g/dL Albumin (3.5-5.0) g/dL Lipase (23-300) U/L Urine Color Yellow Urine Appearance Clear (Clear) Urine pH 5.5 (5.0-8.0) Ur Specific [place] 1.027 (1.001-1.035) Urine Protein Negative (Negative) Urine Glucose (UA) Negative (Negative) Urine Ketones Negative (Negative) Urine Blood Negative (Negative) Urine Nitrite Negative (Negative) Urine Bilirubin Negative (Negative) Urine Urobilinogen <2.0 (<2.0) mg/dL Ur Leukocyte Esterase Small H (Negative) Urine RBC 1 (0-5) /hpf Urine WBC 3 (0-5) /hpf Ur Squamous Epith Cells 1 (0-4) /hpf Urine Bacteria Rare H (None) /hpf Urine Mucus Rare H (None) /hpf Urine HCG, Qual Not Detected (Not Detectd) 04/13/22 Range/Units 00:48 WBC (3.8-10.6) k/uL RBC (3.80-5.40) m/uL Hgb (11.4-16.0) gm/dL Hct (34.0-46.0) % MCV (80.0-100.0) fL MCH (25.0-35.0) pg MCHC (31.0-37.0) g/dL RDW (11.5-15.5) % Plt Count (150-450) k/uL MPV Neutrophils % % Lymphocytes % % Monocytes % % Eosinophils % % Basophils % % Neutrophils # (1.3-7.7) k/uL Lymphocytes # (1.0-4.8) k/uL Monocytes # (0-1.0) k/uL Eosinophils # (0-0.7) k/uL Basophils # (0-0.2) k/uL Sodium 138 (137-145) mmol/L Potassium 3.7 (3.5-5.1) mmol/L Chloride 105 (98-107) mmol/L Carbon Dioxide 24 (22-30) mmol/L Anion Gap 9 mmol/L BUN 15 (7-17) mg/dL Creatinine 0.82 (0.52-1.04) mg/dL Est GFR (CKD-EPI)AfAm >90 (>60 ml/min/1.73 sqM) Est GFR (CKD-EPI)NonAf >90 (>60 ml/min/1.73 sqM) Glucose 84 (74-99) mg/dL Calcium 9.6 (8.4-10.2) mg/dL Total Bilirubin 0.2 (0.2-1.3) mg/dL AST 24 (14-36) U/L ALT 39 H (4-34) U/L Alkaline Phosphatase 124 (38-126) U/L Total Protein 7.8 (6.3-8.2) g/dL Albumin 4.7 (3.5-5.0) g/dL Lipase 68 (23-300) U/L Urine Color Urine Appearance (Clear) Urine pH (5.0-8.0) Ur Specific [place] (1.001-1.035) Urine Protein (Negative) Urine Glucose (UA) (Negative) Urine Ketones (Negative) Urine Blood (Negative) Urine Nitrite (Negative) Urine Bilirubin (Negative) Urine Urobilinogen (<2.0) mg/dL Ur Leukocyte Esterase (Negative) Urine RBC (0-5) /hpf Urine WBC (0-5) /hpf Ur Squamous Epith Cells (0-4) /hpf Urine Bacteria (None) /hpf Urine Mucus (None) /hpf Urine HCG, Qual (Not Detectd) - Radiology Data Radiology results: report reviewed, image reviewed KUB x-ray was obtained. Report was reviewed in its entirety. Impression per Dr. Haynes is nonacute abdomen. Disposition Clinical Impression: Abdominal bloating Disposition: HOME SELF-CARE Condition: Stable Instructions (If sedation given, give patient instructions): Gas and Bloating (ED) Additional Instructions: Take Simethicone (over the counter medication) for bloating discomfort. Increase intake of fiber and water. Document/journal dietary intake to see if there are any correlating foods. Consider herbal tea such as peppermint for a more natural alternative. Follow-up with your surgeon as scheduled. Return to the emergency department with any new, worsening, or concerning symptoms. Is patient prescribed a controlled substance at d/c from ED?: No Referrals: Cb Fried DO [Primary Care Provider] - 1-2 days Time of Disposition: 03:21
[2022-04-13 00:58] LABS: Basophils # (A) 0.1 k/uL (0-0.2); Basophils % (A) 1 %; Eosinophils # (A) 0.4 k/uL (0-0.7); Eosinophils % (A) 4 %; HCT 45.3 % (34.0-46.0); HGB 14.8 gm/dL (11.4-16.0); Lymphocytes # (A) 4.2 k/uL (1.0-4.8); Lymphocytes % (A) 40 %; MCH 30.1 pg (25.0-35.0); MCHC 32.7 g/dL (31.0-37.0); MCV 92.1 fL (80.0-100.0); Mean Platelet Volume 6.9; Monocytes # (A) 0.6 k/uL (0-1.0); Monocytes % (A) 5 %; Neutrophils # (A) 5.3 k/uL (1.3-7.7); Neutrophils % (A) 49 %; Platelet Count 380 k/uL (150-450); RBC 4.92 m/uL (3.80-5.40); RDW 13.2 % (11.5-15.5); WBC 10.7 k/uL (3.8-10.6)
[2022-04-13 01:11] LABS: Appearance,Urine Clear (Clear); Bacteria,Urine Rare /hpf; Bilirubin,Urine Negative (Negative); Blood,Urine Negative (Negative); Color,Urine Yellow; Glucose,Urine (UA) Negative (Negative); Ketones,Urine Negative (Negative); Leukocyte Esterase,Urine Small (Negative); Mucus,Urine Rare /hpf; Nitrite,Urine Negative (Negative); PH, Urine 5.5 (5.0-8.0); Protein,Urine Negative (Negative); RBC,Urine 1 /hpf (0-5); Specific Gravity,Urine 1.027 (1.001-1.035); Squamous Epithelial Cell,Urine 1 /hpf (0-4); Urobilinogen,Urine <2.0 mg/dL (<2.0); WBC,Urine 3 /hpf (0-5)
[2022-04-13 01:23] LABS: ALT 39 U/L (4-34); AST 24 U/L (14-36); African American GFR (CKD) >90 (>60 ml/min/1.73 sqM); Albumin 4.7 g/dL (3.5-5.0); Alkaline Phosphatase 124 U/L (38-126); Anion Gap 9 mmol/L; Blood Urea Nitrogen 15 mg/dL (7-17); Calcium 9.6 mg/dL (8.4-10.2); Carbon Dioxide 24 mmol/L (22-30); Chloride 105 mmol/L (98-107); Glucose 84 mg/dL (74-99); Lipase 68 U/L (23-300); Non-African American GFR(CKD) >90 (>60 ml/min/1.73 sqM); Potassium 3.7 mmol/L (3.5-5.1); Sodium 138 mmol/L (137-145); Total Bilirubin 0.2 mg/dL (0.2-1.3); Total Protein 7.8 g/dL (6.3-8.2)
--- NOTE | 2022-04-13 01:58 | XR ---
EXAMINATION TYPE: XR KUB portable DATE OF EXAM: 04/13/2022 COMPARISON: NONE HISTORY: Abdominal distention TECHNIQUE: 2 views upright FINDINGS: There is no sign of intestinal obstruction or pneumoperitoneum. Fecal pattern is normal. Tata ng bases are clear. No pathologic calcifications. IMPRESSION: Nonacute abdomen.
[2022-04-13 02:28] VITALS: BP 145/99; PULSE 72; RESP 16
== END 2022-04-13 03:24 | disposition home or self-care (01) ==
LOC: EC 23:57
DX: R14.0 Abdominal distension (gaseous) (principal); F41.9 Anxiety disorder, unspecified; F31.9 Bipolar disorder, unspecified; F17.200 Nicotine dependence, unspecified, uncomplicated; Z88.8 Allergy status to other drugs, medicaments and biological substances; Z79.899 Other long term (current) drug therapy
CPT/HCPCS: 36415; 74018; 80053; 81001; 81025; 83690; 85025; 99284

== ENCOUNTER 2022-04-24 19:12 | Emergency (ER) | payer BC, OTHER ==
[2022-04-24 19:17] VITALS: TEMP 98.5
[2022-04-24] MEDS ORDERED: PANTOPRAZOLE 40 MG/10 ML VIAL IVP STA (19:27)
--- NOTE | 2022-04-24 19:36 | ED ---
General Adult HPI - General Chief complaint: Chest Pain Stated complaint: chest pain Time Seen by Provider: 04/24/22 19:19 Source: patient, RN notes reviewed, old records reviewed Mode of arrival: ambulatory Limitations: no limitations - History of Present Illness Initial comments: This is a well-appearing 31-year-old female that presents to the emergency room with complaints of chest pain on and off for the past couple of weeks. States that she seen her primary care doctor who did an EKG and noticed some changes however her labs were within normal limits. She was scheduled to have an echocardiogram. She states that they did start her on the Lisinopril for high blood pressure which she started today. She states that she developed chest pain with a headache today which is why she came to the emergency room. On exam patient points to her epigastrium when she is describing her chest pain. She states that she does feel palpitations and shortness of breath. She also used her albuterol to see if that will resolve her symptoms which it did not. She denies any diaphoresis, no fevers or vomiting but does state she has some nausea. Patient is a daily smoker. She states last month she was evaluated for gallbladder disease when she was having epigastric pain and bloating. States this pain is slightly higher. She does admit to some anxiety. She has family history of atrial fibrillation and strokes, no sudden cardiac . -: days(s) (2) Location: abdomen (epigastric) Radiation: non-radiation Severity scale (1-10): 5 Consistency: intermittent Improves with: none Worsens with: none Associated Symptoms: cough, headaches, nausea/vomiting (no vomiting) Treatments Prior to Arrival: other (albuterol) - Related Data Home Medications Medication Instructions Recorded Confirmed Albuterol Sulfate [Albuterol 1 puff INHALATION RT-Q4H PRN 04/24/22 04/24/22 Sulfate Hfa] Ypumveo-Ekdo-Gyne [id number] 2 tab PO Q6H PRN 04/24/22 04/24/22 [Excedrin] lisinopriL [Zestril] 5 mg PO HS 04/24/22 04/24/22 Allergies Allergy/AdvReac Type Severity Reaction Status Date / Time bupropion HCl Allergy [place] Verified 04/24/22 20:02 [From Wellbutrin] Syndrome lamotrigine [From Lamictal] Allergy Kimberly Verified 04/24/22 20:02 Syndrome Review of Systems ROS Statement: Those systems with pertinent positive or pertinent negative responses have been documented in the HPI. ROS Other: All systems not noted in ROS Statement are negative. Past Medical History Past Medical History: Hypertension History of Any Multi-Drug Resistant Organisms: None Reported Past Surgical History: Section, Cholecystectomy Past Anesthesia/Blood Transfusion Reactions: No Reported Reaction Past Psychological History: Anxiety, Bipolar, Depression Smoking Status: Current every day smoker Past Alcohol Use History: Occasional Past Drug Use History: None Reported General Exam Limitations: no limitations General appearance: alert, in no apparent distress Head exam: Present: atraumatic Eye exam: Present: normal appearance. Absent: scleral icterus, conjunctival injection ENT exam: Present: mucous membranes moist Neck exam: Present: normal inspection. Absent: tenderness, meningismus Respiratory exam: Present: normal lung sounds bilaterally. Absent: respiratory distress, accessory muscle use Cardiovascular Exam: Present: regular rate, normal rhythm GI/Abdominal exam: Present: soft Extremities exam: Present: full ROM, normal capillary refill. Absent: pedal edema Neurological exam: Present: alert, oriented X3 Psychiatric exam: Present: normal affect, normal mood Skin exam: Present: warm, dry, normal color. Absent: cyanosis, diaphoretic, petechiae, pallor Course Vital Signs 04/24/22 04/24/22 04/24/22 19:13 19:32 21:31 Temperature 98.5 F Pulse Rate 102 H 78 Pulse Rate [ 74 Bilateral Radial] Respiratory 22 16 Rate Blood Pressure 164/108 115/82 O2 Sat by Pulse 100 96 Oximetry - Reevaluation(s) Reevaluation #1: 04/24/22 20:13 Reevaluation of patient's blood pressure without intervention shows 137/90. Time: 20:13 EKG Findings - EKG Results: EKG: sinus rhythm (Ventricular rate 99, GA interval 0.139, QRS 0.79, QTC 0.398) Medical Decision Making - Medical Decision Making Patient presents with chest pain on and off for the past couple of weeks. She was seen by her primary care doctor who did an EKG and labs with no immediate concern. She was directed to schedule an echocardiogram. She states that they did start her on the Lisinopril for high blood pressure which she started today. Today she developed a headache in addition to her chest pain and was concerned about her hypertension. X-ray shows no acute cardiopulmonary disease. Hemoglobin and hematocrit are stable there is no evidence of leukocytosis. Electrolytes are unremarkable. Troponin is negative at 0.012 and EKG shows sinus rhythm, no ST elevation. Urinalysis shows 2+ ketones no evidence of urinary tract infection, she was given a 500 mL bolus. Repeat blood pressure is 137/90 without intervention. She is taking Lisinopril 5 mg which she started this morning scribed by her primary care doctor. Patient's symptoms are consistent with atypical chest pain. HEART score low. She was directed to follow-up with her primary care doctor for continuation of care and return to the emergency room with any new or concerning symptoms. Case discussed with Dr. Márquez. - Lab Data Result diagrams: 04/24/22 19:34 04/24/22 19:34 Lab Results 04/24/22 04/24/22 04/24/22 Range/Units 19:34 19:34 19:34 WBC 10.2 (3.8-10.6) k/uL RBC 5.02 (3.80-5.40) m/uL Hgb 15.5 (11.4-16.0) gm/dL Hct 46.0 (34.0-46.0) % MCV 91.8 (80.0-100.0) fL MCH 30.9 (25.0-35.0) pg MCHC 33.6 (31.0-37.0) g/dL RDW 13.1 (11.5-15.5) % Plt Count 365 (150-450) k/uL MPV 7.0 Neutrophils % 57 % Lymphocytes % 35 % Monocytes % 4 % Eosinophils % 3 % Basophils % 1 % Neutrophils # 5.8 (1.3-7.7) k/uL Lymphocytes # 3.5 (1.0-4.8) k/uL Monocytes # 0.4 (0-1.0) k/uL Eosinophils # 0.3 (0-0.7) k/uL Basophils # 0.1 (0-0.2) k/uL PT 10.2 (9.0-12.0) sec INR 0.9 (<1.2) APTT 26.0 (22.0-30.0) sec Sodium 139 (137-145) mmol/L Potassium 3.9 (3.5-5.1) mmol/L Chloride 102 (98-107) mmol/L Carbon Dioxide 22 (22-30) mmol/L Anion Gap 15 mmol/L BUN 14 (7-17) mg/dL Creatinine 0.88 (0.52-1.04) mg/dL Est GFR (CKD-EPI)AfAm >90 (>60 ml/min/1.73 sqM) Est GFR (CKD-EPI)NonAf 89 (>60 ml/min/1.73 sqM) Glucose 107 H (74-99) mg/dL Calcium 9.9 (8.4-10.2) mg/dL Magnesium 1.9 (1.6-2.3) mg/dL Total Bilirubin 0.2 (0.2-1.3) mg/dL AST 33 (14-36) U/L ALT 39 H (4-34) U/L Alkaline Phosphatase 117 (38-126) U/L Troponin I (0.000-0.034) ng/mL Total Protein 8.2 (6.3-8.2) g/dL Albumin 5.0 (3.5-5.0) g/dL Amylase 53 (30-110) U/L Lipase 60 (23-300) U/L Urine Color Urine Appearance (Clear) Urine pH (5.0-8.0) Ur Specific [place] (1.001-1.035) Urine Protein (Negative) Urine Glucose (UA) (Negative) Urine Ketones (Negative) Urine Blood (Negative) Urine Nitrite (Negative) Urine Bilirubin (Negative) Urine Urobilinogen (<2.0) mg/dL Ur Leukocyte Esterase (Negative) Urine RBC (0-5) /hpf Urine WBC (0-5) /hpf Ur Squamous Epith Cells (0-4) /hpf Urine Bacteria (None) /hpf Urine Mucus (None) /hpf 04/24/22 04/24/22 Range/Units 19:34 20:39 WBC (3.8-10.6) k/uL RBC (3.80-5.40) m/uL Hgb (11.4-16.0) gm/dL Hct (34.0-46.0) % MCV (80.0-100.0) fL MCH (25.0-35.0) pg MCHC (31.0-37.0) g/dL RDW (11.5-15.5) % Plt Count (150-450) k/uL MPV Neutrophils % % Lymphocytes % % Monocytes % % Eosinophils % % Basophils % % Neutrophils # (1.3-7.7) k/uL Lymphocytes # (1.0-4.8) k/uL Monocytes # (0-1.0) k/uL Eosinophils # (0-0.7) k/uL Basophils # (0-0.2) k/uL PT (9.0-12.0) sec INR (<1.2) APTT (22.0-30.0) sec Sodium (137-145) mmol/L Potassium (3.5-5.1) mmol/L Chloride (98-107) mmol/L Carbon Dioxide (22-30) mmol/L Anion Gap mmol/L BUN (7-17) mg/dL Creatinine (0.52-1.04) mg/dL Est GFR (CKD-EPI)AfAm (>60 ml/min/1.73 sqM) Est GFR (CKD-EPI)NonAf (>60 ml/min/1.73 sqM) Glucose (74-99) mg/dL Calcium (8.4-10.2) mg/dL Magnesium (1.6-2.3) mg/dL Total Bilirubin (0.2-1.3) mg/dL AST (14-36) U/L ALT (4-34) U/L Alkaline Phosphatase (38-126) U/L Troponin I <0.012 (0.000-0.034) ng/mL Total Protein (6.3-8.2) g/dL Albumin (3.5-5.0) g/dL Amylase (30-110) U/L Lipase (23-300) U/L Urine Color Light Yellow Urine Appearance Clear (Clear) Urine pH 5.5 (5.0-8.0) Ur Specific [place] 1.016 (1.001-1.035) Urine Protein Negative (Negative) Urine Glucose (UA) Negative (Negative) Urine Ketones 2+ H (Negative) Urine Blood Small H (Negative) Urine Nitrite Negative (Negative) Urine Bilirubin Negative (Negative) Urine Urobilinogen <2.0 (<2.0) mg/dL Ur Leukocyte Esterase Negative (Negative) Urine RBC 2 (0-5) /hpf Urine WBC 1 (0-5) /hpf Ur Squamous Epith Cells 5 H (0-4) /hpf Urine Bacteria Rare H (None) /hpf Urine Mucus Rare H (None) /hpf Disposition Clinical Impression: Chest pain Disposition: HOME SELF-CARE Condition: Good Instructions (If sedation given, give patient instructions): Chest Pain (ED) Additional Instructions: Testing today including x-ray, EKG and blood work are reassuring. Continue taking your lisinopril as prescribed by your primary care doctor and follow up with Dr. Fried next week. Return to the emergency room with any new or concerning symptoms. Is patient prescribed a controlled substance at d/c from ED?: No Referrals: Cb Fried DO [Primary Care Provider] - 1-2 days Time of Disposition: 21:10
[2022-04-24 19:41] LABS: Basophils # (A) 0.1 k/uL (0-0.2); Basophils % (A) 1 %; Eosinophils # (A) 0.3 k/uL (0-0.7); Eosinophils % (A) 3 %; HGB 15.5 gm/dL (11.4-16.0); Lymphocytes # (A) 3.5 k/uL (1.0-4.8); Lymphocytes % (A) 35 %; MCH 30.9 pg (25.0-35.0); MCHC 33.6 g/dL (31.0-37.0); MCV 91.8 fL (80.0-100.0); Monocytes # (A) 0.4 k/uL (0-1.0); Monocytes % (A) 4 %; Neutrophils # (A) 5.8 k/uL (1.3-7.7); Neutrophils % (A) 57 %; Platelet Count 365 k/uL (150-450); RBC 5.02 m/uL (3.80-5.40); RDW 13.1 % (11.5-15.5); WBC 10.2 k/uL (3.8-10.6)
[2022-04-24 19:47] LABS: Carbon Dioxide 22 mmol/L (22-30); Chloride 102 mmol/L (98-107); Glucose 107 mg/dL (74-99); Potassium 3.9 mmol/L (3.5-5.1); Sodium 139 mmol/L (137-145)
[2022-04-24 19:48] LABS: ALT 39 U/L (4-34); AST 33 U/L (14-36); African American GFR (CKD) >90 (>60 ml/min/1.73 sqM); Alkaline Phosphatase 117 U/L (38-126); Amylase 53 U/L (30-110); Anion Gap 15 mmol/L; Blood Urea Nitrogen 14 mg/dL (7-17); Calcium 9.9 mg/dL (8.4-10.2); Lipase 60 U/L (23-300); Magnesium 1.9 mg/dL (1.6-2.3); Non-African American GFR(CKD) 89 (>60 ml/min/1.73 sqM); Total Bilirubin 0.2 mg/dL (0.2-1.3); Total Protein 8.2 g/dL (6.3-8.2)
[2022-04-24 19:53] LABS: INR 0.9 (<1.2); Prothrombin Time 10.2 sec (9.0-12.0)
--- NOTE | 2022-04-24 19:58 | XR ---
EXAMINATION TYPE: XR chest 2V DATE OF EXAM: 04/24/2022 7:42 PM COMPARISON: Chest x-ray 12/03/2020 TECHNIQUE: XR chest 2V . CLINICAL INDICATION:Female, 31 years old with history of Chest Pain; FINDINGS: Lungs/Pleura: There is no evidence of pleural effusion, focal consolidation, or pneumothorax. Pulmonary vascularity: Unremarkable. Heart/mediastinum: Cardiomediastinal silhouette is unremarkable. Musculoskeletal: No acute osseous pathology. IMPRESSION: No acute cardiopulmonary disease/process.
[2022-04-24 20:50] LABS: Appearance,Urine Clear (Clear); Bacteria,Urine Rare /hpf; Bilirubin,Urine Negative (Negative); Blood,Urine Small (Negative); Color,Urine Light Yellow; Glucose,Urine (UA) Negative (Negative); Ketones,Urine 2+ (Negative); Leukocyte Esterase,Urine Negative (Negative); Mucus,Urine Rare /hpf; Nitrite,Urine Negative (Negative); PH, Urine 5.5 (5.0-8.0); Protein,Urine Negative (Negative); RBC,Urine 2 /hpf (0-5); Specific Gravity,Urine 1.016 (1.001-1.035); Squamous Epithelial Cell,Urine 5 /hpf (0-4); Urobilinogen,Urine <2.0 mg/dL (<2.0); WBC,Urine 1 /hpf (0-5)
[2022-04-24] MEDS ORDERED: SODIUM CHLORIDE 0.9% 500 ML 500 ML IV ONE (21:03)
[2022-04-24 21:32] VITALS: BP 115/82; PULSE 78; RESP 16
== END 2022-04-24 21:32 | disposition home or self-care (01) ==
LOC: EC 19:12
DX: R07.9 Chest pain, unspecified (principal); I10 Essential (primary) hypertension; F31.9 Bipolar disorder, unspecified; F41.9 Anxiety disorder, unspecified; F17.200 Nicotine dependence, unspecified, uncomplicated; Z88.8 Allergy status to other drugs, medicaments and biological substances; Z79.82 Long term (current) use of aspirin; Z79.899 Other long term (current) drug therapy
CPT/HCPCS: 36415; 93005; 80053; 82150; 83690; 83735; 84484; 85025; 85610; 85730; 81001; 71046; 99285; 96374; C9113

== ENCOUNTER → 2022-05-26 | Outpatient (CLI) | payer BC, OTHER ==
--- NOTE | 2022-05-27 15:06 | CA ---
Exercise Stress Test Report Name: Fide Ross Exam Date: 05/26/2022 09:14 Exam Location: [facility] Stress Ht (in): 62 Wt (lb): 200 BSA: 1.91 Ordering Phys: Cassi Mcfarlane Referring Phys: Cassi Mcfarlane Technologist: Rhett Avery Age: 31 Gender: F : 1990 Procedure CPT: Indications: R9431 ICD-10 Codes: Patient History: Medications: NONE Meds past 24 hrs: Pretest Chest Pain: STRESS TEST John Protocol Exercise Duration (min:sec): 10:[address] Depressions (mm): Angina Score: Paulino Score: Resting HR (bpm): 65 Peak HR (bpm): 167 Resting BP (mmHg): 122 / 83 Peak BP (mmHg): 167 / 82 MPHR: 190 Target HR: 162 % MPHR: 88 METS: 12.1 Total Dose: Peak Dose: Atropine: Double Product: 20777 BP Response: Stress Termination: Reached target heart rate Stress Symptoms: NO SYMPTOMS Stress Summary: ECG ANALYSIS Resting ECG: Stress ECG: CONCLUSIONS Baseline heart rate 65 beats a minute, Baseline blood pressure 132/83 mmHg Baseline 12-lead EKG shows normal sinus rhythm normal cardiac intervals Patient exercised on a John protocol for 10 minutes 10 seconds achieving a peak heart rate of 151 beats a minute line peak blood pressure 167/82 mmHg No ECG ms for ischemia No arrhythmias noted Good exercise capacity Dr. Christo Scott MD (Electronically Signed) Final Date: 26 May 2022 13:26
== END | disposition home or self-care (01) ==
LOC: RADNMMAIN 08:47
PROVIDERS: ATTEND Nurse Practitioner Family
DX: R94.31 Abnormal electrocardiogram [ECG] [EKG] (principal)
CPT/HCPCS: 93017